=== PATIENT | male | born 1955 | race Asian ===

== ENCOUNTER 2021-01-29 13:43 | Inpatient (IN) | payer MEDICAID ==
[~2021-01-29] VITALS: Ht 162.6 cm; Wt 74.8 kg
[2021-01-29] MEDS ORDERED: ASPIRIN 325 MG TABLET PO ONE (14:00)
[2021-01-29] MEDS ORDERED: NITROGLYCERIN 0.4 MG/TAB BOTTLE SL ONE ×2 (14:00→14:08)
[2021-01-29] MEDS ORDERED: ASPIRIN 325 MG TABLET ONE (14:08)
[2021-01-29 14:22] LABS: HEMATOCRIT 43.6 % (36.7-47.1); MEAN CORPUSCULAR HEMOGLOBIN 33.3 uug (23.8-33.4); MEAN CORPUSCULAR VOLUME 97.6 fL (73.0-96.2); PLATELET COUNT (AUTO) 54 K/uL (152-348)
--- NOTE | 2021-01-29 14:22 | NUR ---
PT IS IN ROOM #1B. DR CASEY EVALUATED THE PT.
[2021-01-29 14:30] LABS: CREATININE 1.1 mg/dL (0.6-1.3)
[2021-01-29 14:42] LABS: BILIRUBIN,DIRECT 0.2 mg/dL (0.0-0.2); BILIRUBIN,TOTAL 0.9 mg/dL (0.2-1.0); TOTAL PROTEIN, SERUM 8.2 g/dL (6.4-8.2)
[2021-01-29] MEDS ORDERED: PROP10TA10 PO (17:34)
[2021-01-29] MEDS ORDERED: LOSA50TA39 PO (17:34)
[2021-01-29] MEDS ORDERED: LEVE500T20 PO (17:34)
[2021-01-29] MEDS ORDERED: TENO300T9 PO (17:34)
--- NOTE | 2021-01-29 19:09 | NUR ---
REPORT GIVEN TO MATERIAL CHECKER RN.
[2021-01-29] MEDS ORDERED: ONDANSETRON 4 MG/2 ML VIAL IV PRN (19:30)
[2021-01-29] MEDS ORDERED: MAGNESIUM HYDROXIDE 30 ML LIQUID UDC PO PRN (19:30)
[2021-01-29] MEDS ORDERED: Z GUARD REMEDY PASTE 57 GM TUBE TOP PRN (19:30)
[2021-01-29] MEDS ORDERED: ACETAMINOPHEN 325 MG TABLET PO PRN (19:30)
[2021-01-29 21:26] VITALS: BP 142/72
[2021-01-29] MEDS: levETIRAcetam 500 MG TABLET PO SCH (21:45)
[2021-01-29] MEDS: PROPRANOLOL HCL 10 MG TABLET PO SCH (21:46)
[2021-01-29] MEDS: IV NS 1000 ML 1,000 ML IV PRN (21:47)
--- NOTE | 2021-01-29 22:27 | NUR ---
Pt arrived in the unit from ER at 2109 for Tele admission for Dx of Chest pain, High- risk ACS and secondary dx of leukopenia. Pt at bedside with pt. Pt is AAO x4, [place]ian speaking, able to make needs known. No acute distress noted. Denies pain, CP at this time. No SOB or dizziness. Pt ambulatory, walking steadily. IV on right AC #18, patent and intact. Pertinent assessment done. Oriented pt to room and equipment. As per pt's son, [place], update him on anything that there is to be done regarding the pt's care. Safety measures maintained. Call light and personal items within reach. Will continue to monitor.
[2021-01-29 23:37] LABS: EOSINOPHILS % (MANUAL) 1 % (0-8); LYMPHOCYTES % (MANUAL) 32 % (20-40); MONOCYTES % (MANUAL) 5 % (2-10); NEUTROPHILS % (MANUAL) 62 % (42-75)
[2021-01-30] VITALS: BP 107/55
[2021-01-30 04:11] VITALS: BP 123/77
[2021-01-30 08:05] LABS: HEMATOCRIT 41.1 % (36.7-47.1); MEAN CORPUSCULAR HEMOGLOBIN 33.2 uug (23.8-33.4); MEAN CORPUSCULAR VOLUME 97.3 fL (73.0-96.2)
[2021-01-30] MEDS: levETIRAcetam 500 MG TABLET PO SCH (08:28)
[2021-01-30] MEDS: PROPRANOLOL HCL 10 MG TABLET PO SCH (08:29)
[2021-01-30 08:59] LABS: CREATININE 0.9 mg/dL (0.6-1.3); MAGNESIUM 2.2 mg/dL (1.8-2.4); PHOSPHOROUS 4.2 mg/dL (2.5-4.9)
[2021-01-30] MEDS ORDERED: TENOFOVIR DISOPROXIL FUMARATE 300 MG TABLET PO SCH ×2 (09:00)
[2021-01-30] MEDS ORDERED: LOSARTAN POTASSIUM 50 MG TABLET PO SCH (09:00)
[2021-01-30] MEDS ORDERED: levETIRAcetam 500 MG TABLET PO SCH (09:00)
[2021-01-30] MEDS ORDERED: PROPRANOLOL HCL 10 MG TABLET PO SCH (09:00)
[2021-01-30] MEDS ORDERED: ASPIRIN 81 MG TAB.CHEW PO SCH (09:00)
[2021-01-30 09:01] LABS: PLATELET COUNT (AUTO) 47 K/uL (152-348)
--- NOTE | 2021-01-30 09:38 | NUR ---
Receive PT resting in bed. Pt is AAO x 4, Bengali speaking, able to make needs known. No acute distress noted. Denies pain. No SOB or dizziness. Pt ambulatory. IV on right AC #18, patent and intact. Pertinent assessment done.on Tele NSR 65 to 70 BPM. As per pt's son, [place] in the room, update him on anything that there is to be done regarding the pt's care. Safety measures maintained. Call light and personal items within reach. Will continue to monitor.
[2021-01-30] MEDS: IV NS 1000 ML 1,000 ML IV PRN (09:56)
[2021-01-30 11:36] VITALS: BP 105/57
[2021-01-30 12:46] LABS: BAND % (MANUAL) 4 % (0-10); EOSINOPHILS % (MANUAL) 1 % (0-8); LYMPHOCYTES % (MANUAL) 45 % (20-40); MONOCYTES % (MANUAL) 4 % (2-10); NEUTROPHILS % (MANUAL) 46 % (42-75)
--- NOTE | 2021-01-30 13:30 | NUR ---
Pt discharge home, all discharge instructions given to PT and son [place] at bed side who verbalized understanding. ABIMAEL IV D/C. ID arm band removed. Belonging accounted . Taken to the lobby in a W/C. Pt left in stable condition
== END 2021-01-30 13:25 | disposition home or self-care (01) | DRG 203 ==
LOC: ER 13:43 → TELE3 20:46
PROVIDERS: ADMIT Nurse Practitioner Acute Care; ATTEND Nurse Practitioner Acute Care
DX: M94.0 Chondrocostal junction syndrome [Tietze] (principal); B19.10 Unspecified viral hepatitis B without hepatic coma; K70.30 Alcoholic cirrhosis of liver without ascites; G40.909 Epilepsy, unspecified, not intractable, without status epilepticus; D72.819 Decreased white blood cell count, unspecified; I10 Essential (primary) hypertension; Z87.891 Personal history of nicotine dependence; Z20.822 Contact with and (suspected) exposure to COVID-19; R79.89 Other specified abnormal findings of blood chemistry
CPT/HCPCS: 36415; 70030-TC; 71045; 83735; 84100; 85025; 85730; 93005; 93307; A4663; G0378; J7030; J8499